=== PATIENT | male | born 1955 | race Caucasian/White ===

== ENCOUNTER 2020-12-22 19:35 | Emergency (ER) | payer OTHER ==
[2020-12-22 20:43] LABS: BASOPHIL 0.6 % (0-2); EOSINOPHIL 3.5 % (0-7); HCT 48.7 % (42.0-52.0); HGB 16.5 g/dl (13.2-18.0); LYMPHOCYTE 8.3 % (15-48); MCH 31.3 pg (25.0-31.0); MCHC 33.9 g/dL (32.0-36.0); MCV 92.2 fL (78.0-100.0); MONOCYTE 8.1 % (0-12); MPV 11.3 fL (6.0-9.5); NEUTROPHIL 78.3 % (41-80); NRBC 0; PLT 136 K/uL (150-400); RBC 5.28 M/uL (4.70-6.00); RDW 11.8 % (11.5-14.0); WBC 11.6 K/uL (4.0-10.5)
[2020-12-22 20:55] LABS: INR 1.89 (0.9-1.2); PROTHROMBIN TIME 20.6 SECONDS (11.4-13.6); PTT 34.4 SECONDS (22.2-34.7)
[2020-12-22 21:05] LABS: ALBUMIN 3.2 g/dL (3.4-5.0); ALKALINE PHOSHATASE 121 U/L (46-116); ALT 66 U/L (16-63); AST 74 U/L (15-37); BILIRUBIN - TOTAL 0.9 mg/dL (0.2-1.0); BUN 8 mg/dL (7-18); BUN/CREAT RATIO (CALC) 9.3 RATIO; CHLORIDE 100 mmol/L (98-107); CO2 (BICARBONATE) 30 mmol/L (21-32); CPK 278 U/L (39-308); CREATININE 0.86 mg/dL (0.67-1.17); GLOBULIN (CALCULATION) 2.9 g/dL; GLUCOSE 244 mg/dL (74-106); POTASSIUM 3.8 mmol/L (3.5-5.1); TOTAL PROTEIN 6.1 g/dL (6.4-8.2)
[2020-12-22 21:07] LABS: BILIRUBIN NEGATIVE (NEGATIVE); BLOOD TRACE-INTACT Ery/uL (NEGATIVE); CLARITY CLEAR (CLEAR); COLOR YELLOW (YELLOW); GLUCOSE (U) 3+ mg/dL (NORMAL); LEUKOCYTES NEGATIVE Leu/uL (NEGATIVE); NITRITE NEGATIVE (NEGATIVE); PROTEIN NEGATIVE (NEGATIVE); UROBILINOGEN 0.2 mg/dL (0.2-1.0)
[2020-12-22 21:16] LABS: ECSTASY (MDMA) NEGATIVE (NEGATIVE); MARIJUANA (THC) NEGATIVE (NEGATIVE); METHADONE NEGATIVE (NEGATIVE); OPIATES NEGATIVE (NEGATIVE)
[2020-12-22 21:17] LABS: AMPHETAMINES NEGATIVE (NEGATIVE); BARBITURATES NEGATIVE (NEGATIVE); OXYCODONE NEGATIVE (NEGATIVE)
[2020-12-22 21:19] LABS: URINARY RBC RARE
== END 2020-12-23 00:30 | disposition other institution (70) ==
LOC: FER 19:35
PROVIDERS: Emergency Medicine Emergency Medical Services
DX: S22.089A Unspecified fracture of T11-T12 vertebra, initial encounter for closed fracture (principal); S32.019A Unspecified fracture of first lumbar vertebra, initial encounter for closed fracture; S00.532A Contusion of oral cavity, initial encounter; S00.01XA Abrasion of scalp, initial encounter; R00.0 Tachycardia, unspecified; M54.2 Cervicalgia; J44.9 Chronic obstructive pulmonary disease, unspecified; E11.9 Type 2 diabetes mellitus without complications; Z79.4 Long term (current) use of insulin; Z79.01 Long term (current) use of anticoagulants; V49.9XXA Car occupant (driver) (passenger) injured in unspecified traffic accident, initial encounter; Y92.410 Unspecified street and highway as the place of occurrence of the external cause
CPT/HCPCS: 36415; 70450; 71260; 72125; 72128; 72131; 80053; 80305; 81001; 82550; 84484; 85025; 85610; 85730; 93005; 96372; G0480; J1170; J2270; J2405; J7030; Q9967